=== PATIENT | female | born 1985 | race Asian ===

== ENCOUNTER → 2021-04-04 12:43 | Outpatient (CLI) | payer BC, SELFPAY ==
--- NOTE | ~2021-04-04 | MMUS_ITS ---
EXAMINATION: MM diagnostic lorena BI w darien, US breast BI limited HISTORY: Palpable lump of the right breast at the 9:00 location and history of left breast mass under going surveillance. TECHNIQUE: Craniocaudal, mediolateral, and mediolateral oblique 3-D tomosynthesis images of the breas ts were performed and synthetic 2-D images were generated. CAD analysis was submitted and interpreted . High resolution limited bilateral breast ultrasound was performed. COMPARISON: No prior mammogram is currently available for comparison. BREAST PARENCHYMAL COMPOSITION: The breasts are extremely dense, which lowers the sensitivity of mamm ography. FINDINGS: MAMMOGRAPHIC FINDINGS: There is no evidence of suspicious mass, calcification, or architectural distortion in either breast to suggest malignancy. No mammographic correlate is identified for the reported palpable abnormality of concern in the right breast. ULTRASOUND: Right breast: There is a 4 mm x 3 mm oval, circumscribed, parallel, hypoechoic mass with no posterior features or internal vascularity at the 10:00 location 3 cm from the nipple at the area of palpable concern. A 5 mm x 4 mm mass with similar sonographic features is seen near the nipple at the 8:30 loc ation. There is also a 3 mm round mass with otherwise similar sonographic features at the 6:00 locati on near the nipple. A 4 mm x 3 mm cyst is seen at the 12:00 location near the nipple. Left breast: There is an 8 mm x 5 mm oval, circumscribed, parallel, hypoechoic mass with no posterior features or internal vascularity at the 2:00 location 3 cm from the nipple. A 4 mm x 2 mm mass with similar sonographic features is seen at the 2:00 location 4 cm from the nipple. IMPRESSION: 1. Probably benign, similar-appearing sonographically detected bilateral breast masses. 2. Comparison with prior imaging is recommended. If unavailable, would recommend targeted bilateral b reast ultrasound six months. BI-RADS Category 0: Incomplete: Needs comparison with prior mammograms. Reviewed, dictated and finalized at location A. PAINTER IMPRESSION: 1. Probably benign, similar-appearing sonographically detected bilateral breast masses. 2. Comparison with prior imaging is recommended. If unavailable, would recommen d targeted bilateral breast ultrasound six months. BI-RADS Category 0: Incomplete: Needs comparison with prior mammograms.
--- NOTE | ~2021-04-04 | US_ITS ---
EXAMINATION: US abdomen complete EXAM DATE: 04/04/2021 13:09 INDICATION: Liver lesion seen [address] scan in [place]. TECHNIQUE: Multiple grayscale and Doppler images of the complete abdomen were obtained (by a technolo gist who performed the scan) and subsequently reviewed. There are no prior studies available for galileo puente. FINDINGS: The abdominal aorta is normal in caliber. Visualized portion IVC is patent. The pancreatic head a nd body are normal in appearance. The pancreatic tail is not visualized. The liver has normal echogenicity and contour. There is focal homogeneously hyperechoic right liver dome lesion measuring 1 cm in diameter. Characteristic appearance for a hemangioma, but ultrasound is nonspecific. Patient's age would also favor benign histology. There is no evidence of intrahepatic biliary duct dilation. Portal venous flow was seen in the hepatopedal, normal direction and has norm al Doppler waveform. Common bile duct measures 3 mm, which is normal. The gallbladder wall is normal in thickness, with ex pected amount of distention. No sonographic evidence of pericholecystic fluid. There is no cholelit hiases. Technologist performing exam reports patient did not demonstrate sonographic Sánchez's sign. Please note that this sign is less reliable in patients who have received pain medication. Right kidney: There is normal contour and echogenicity. It measures 9.8 x 3.7 x 5.3 centimeters. T here are no focal renal lesions identified. There is no hydronephrosis. Left kidney: There is normal contour and echogenicity. It measures 10.7 x 5.4 x 5.0 centimeters. T here are no focal renal lesions identified. There is no hydronephrosis. The spleen measures 8.5 centimeters and is morphologically normal. IMPRESSION: Small liver lesion, nonspecific but most likely benign. Reviewed, dictated and finalized at location A. ORIZATION REPRESENTATIVE
== END ==
PROVIDERS: PCP Emergency Medicine; Visit Provider Emergency Medicine
DX: N63.0 Unspecified lump in unspecified breast (principal); R92.8 Other abnormal and inconclusive findings on diagnostic imaging of breast; K76.9 Liver disease, unspecified
CPT/HCPCS: 76642; 76700; 77062; 77066; G0279

== ENCOUNTER → 2021-07-18 09:51 | Outpatient (CLI) | payer BC, SELFPAY ==
--- NOTE | ~2021-07-18 | US_ITS ---
EXAMINATION: US pelvic complete w TV DATE: 07/18/2021 13:20 INDICATION: Abnormal uterine bleeding Comparison:No prior studies for comparison. TECHNIQUE: Multiple transabdominal and endovaginal sonographic images of the pelvis performed. FINDINGS: The uterus measures 8.4 x 4.2 x 5.1 cm. The endometrial complex measures 7 mm. The right ovary measures 2.7 x 1.5 x 2.2 cm and the left ovary measures 2.6 x 1 x 2.4 cm. There are small follicles in each ovary. Normal doppler signal in both ovaries. There is trace free fluid in the pelvis. There are no abnormal masses seen on either side. IMPRESSION: 1. Unremarkable pelvic ultrasound. Reviewed, dictated and finalized at location A.
== END ==
PROVIDERS: PCP Obstetrics & Gynecology; Visit Provider Obstetrics & Gynecology
DX: N93.9 Abnormal uterine and vaginal bleeding, unspecified (principal)
CPT/HCPCS: 76830; 76856

== ENCOUNTER → 2021-07-18 09:52 | Outpatient (CLI) | payer BC, SELFPAY ==
--- NOTE | ~2021-07-18 | US_ITS ---
EXAMINATION: US right upper quadrant DATE: 07/18/2021 10:18 INDICATION: Thrombocytopenia TECHNIQUE: Multiple grayscale and Doppler ultrasound images of the abdomen were obtained. COMPARISON: 04/04/2021 FINDINGS: Bowel gas obscures visualization of the pancreas. The visualized portions of the pancreas a re unremarkable. There is a stable 9 mm hyperechoic lesion of the right hepatic lobe The liver is oth erwise normal with normal echogenicity and echotexture. No surface nodularity. Normal hepatopetal glenn w in the main portal vein. The gallbladder is normal with no abnormal wall thickening, pericholecysti c fluid or stones. The normal common bile duct measures 3 mm. There was no sonographic Sánchez sign. IMPRESSION: 1. No sonographic correlate for the patient's symptoms. 2. Stable hyperechoic liver lesion, likely hemangioma or focal nodular hyperplasia in the absence of known malignancy. Reviewed, dictated and finalized at location A. IMPRESSION: 1. No sonographic correlate for the patient's symptoms. 2. Stable hyperechoic liver lesion, likely hemangioma or focal nodular hyperpla mack in the absence of known malignancy.
== END ==
PROVIDERS: PCP Internal Medicine Hematology & Oncology; Visit Provider Internal Medicine Hematology & Oncology
DX: D69.6 Thrombocytopenia, unspecified (principal)
CPT/HCPCS: 76705

== ENCOUNTER → 2021-10-03 09:05 | Outpatient (CLI) | payer BC, SELFPAY ==
--- NOTE | ~2021-10-03 | US_ITS ---
US breast BI limited DATE: 10/03/2021 10:01 INDICATION: Six-month follow-up of bilateral breast masses TECHNIQUE: High-resolution bilateral targeted breast ultrasound examination for comparison with 2021 bilateral Limited ultrasound examination COMPARISON: 05/12/2019 [facility] bilateral breast ultrasound images 04/04/2021 bilateral diagnostic mammography 04/04/2021 bilateral Limited breast ultrasound FINDINGS: Right breast: There is an irregular anti-parallel 5.3 mm vertical 5 mm wide hypoechoic mass at 10:00 3 cm from nipple, with internal vascularity. There is through transmission. However, the irregular ma rgins and internal vascularity warrant ultrasound-guided biopsy. 12:00 subareolar: 4 x 4.6 mm circumscribed sonolucency with through transmission, posterior enhanceme nt, consistent with simple cyst 6:00 subareolar: 2.5 x 3.1 mm sonolucency with through transmission, consistent with small cyst 8:00 subareolar: 2.6 x 3.5 mm circumscribed sonolucency, consistent with small cyst Left breast: Circumscribed parallel hypoechoic approximately 4.5 x 7.7 mm lesion without internal vas cularity or posterior shadowing, not significantly changed since 05/12/2019, consistent with benign les ion. IMPRESSION: BI-RADS Category 4: Suspicious abnormality; biopsy should be considered for right breast 10:00 anti-parallel irregular 5 x 5.3 mm lesion [address] Samano telephoned the report and ultrasound-guided biopsy recommendation for the right breast 10:00 lesion on 10/03/20[address] Gamez Reviewed, dictated and finalized at Location A. Reviewed, dictated and finalized at location A. IMPRESSION: BI-RADS Category 4: Suspicious abnormality; biopsy should be consid ered for right breast 10:00 anti-parallel irregular 5 x 5.3 mm lesion [address] Samano telephoned the report and ultrasound-guided biopsy recommendation for the right breast 10:00 lesion on 10/03/2021 [address] Gamez
== END ==
PROVIDERS: PCP Emergency Medicine; Visit Provider Emergency Medicine
DX: R92.2 Inconclusive mammogram (principal); R92.8 Other abnormal and inconclusive findings on diagnostic imaging of breast
CPT/HCPCS: 76642

== ENCOUNTER 2021-11-07 11:17 | Outpatient (CLI) | payer BC, SELFPAY ==
--- NOTE | ~2021-11-07 | MMUS_ITS ---
EXAMINATION: US breast biopsy RT w image, MM post biopsy invasive RT DATE: 11/07/2021 13:51 (accession [id number]), 11/07/2021 13:54 (accession [id number]) INDICATION: Indeterminate mass in the upper outer quadrant of the right breast. Ultrasound-guided cor e biopsy is requested to evaluate for malignancy. TECHNIQUE AND FINDINGS: The risks and potential benefits of the procedure were discussed with the patient including bleeding and infection. A time out was performed. The skin of the right breast was prepared and draped in usua l sterile fashion. 1% lidocaine was used for superficial anesthesia. 1% lidocaine with epinephrine wa s used for deep anesthesia. A vacuum-assisted biopsy gun needle was advanced through to the outer edge of the region of interest from a lateral approach utilizing sonographic guidance. A total of three tissue core samples were obt ained through the lesion. A tissue marker clip was then placed at the biopsy site. Hemostasis was ach ieved. A sterile bandage was applied. The patient tolerated procedure well and there was no evidence of immediate complication. The patient was given verbal instructions to return to the Emergency Department in the event of severe breast pa in or rapid breast enlargement. A two view right breast mammogram was obtained to document tissue mar ker clip placement. IMPRESSION: 1. Successful ultrasound-guided vacuum-assisted biopsy of right breast mass with tissue marker placem ent. Reviewed, dictated and finalized at location A. IMPRESSION: 1. Successful ultrasound-guided vacuum-assisted biopsy of right breast mass wit h tissue marker placement.
== END 2021-11-07 11:18 | disposition home or self-care (01) ==
PROVIDERS: PCP Emergency Medicine; Visit Provider Emergency Medicine
DX: N63.11 Unspecified lump in the right breast, upper outer quadrant (principal)
CPT/HCPCS: 19083; 88305; A4648

== ENCOUNTER → 2022-05-22 10:07 | Outpatient (CLI) | payer BC, SELFPAY ==
--- NOTE | ~2022-05-22 | MMUS_ITS ---
EXAMINATION: MM diagnostic lorena BI w darien, US breast BI complete HISTORY: No histopathology on 11/07/2021 right ultrasound-guided breast biopsy. Bilateral breast scree melissa. TECHNIQUE: ML, MLO and CC 3-D tomosynthesis images of both breasts were performed and synthetic 2-D i mages were generated. CAD analysis was submitted and interpreted. High resolution bilateral complete breast ultrasound examination including all 4 quadrants and subareolar areas was performed. COMPARISON: 11/07/2021 right ultrasound-guided breast biopsy 10/03/2021 bilateral Limited breast ultrasound 02/02/2022. Bilateral diagnostic mammography and bilateral Limited breast ultrasound BREAST PARENCHYMAL COMPOSITION: The breasts are extremely dense, which lowers the sensitivity of mamm ography. FINDINGS: MAMMOGRAPHIC FINDINGS: There is a biopsy marker in the upper outer right breast. There are possible bilateral breast masses] . The examination is extremely limited by the very dense stroma. Bilateral complete breast ultrasound examination was therefore performed. No malignant calcification, architectural distortion, skin thickening or retraction is evident. ULTRASOUND: Right breast: 4:00 3 cm from nipple: Parallel circumscribed 2.2 x 4.5 x 4.3 mm lesion without internal vascularity or posterior shadowing. The margins are mildly irregular. 9:00 3 cm from nipple: Irregular hypoechoic lesion measuring 5.3 x 5.4 x 5.6 mm, with through transmi ssion and posterior enhancement. There is mild internal vascularity. Because of the irregular margins and internal vascularity, sign guided biopsy is recommended. 10:00 5 cm from nipple: 2.4 x 4.9 x 5.2 mm irregular hypoechoic lesion with adjacent color flow signa l. Ultrasound-guided biopsy is recommended due to the irregular margins. Left breast: 1:00 subareolar area: 4.3 x 6.6 x 7.3 mm parallel circumscribed hypoechoic lesion without internal va scularity or posterior shadowing 3:00 3 cm from nipple: 2.8 x 3.4 x 5.2 mm parallel hypoechoic solid lesion without internal vasculari ty or posterior shadowing 8:00 3 cm from nipple: Irregular hypoechoic 6.1 x 3.8 x 7.4 mm mass with internal vascularity, with a n apparent prominent tentacle-like extension. This lesion is suspicious. Ultrasound-guided biopsy is recommended. 10:00 6 cm from nipple: 2.7 x 1.9 x 3.5 mm irregular hypoechoic lesion without internal vascularity o r posterior shadowing IMPRESSION: 1. Multiple bilateral breast masses 2. Ultrasound-guided biopsy of bilateral breast masses is recommended, including at a minimum the rig ht breast 9:00 and 10:00 lesions and left breast 8:00 lesion BI-RADS Category 4: Suspicious abnormalities; biopsy should be considered Dr. Samano telephoned the reports and ultrasound guided biopsy recommendation of both breasts on 023 at 1302 hours to [facility]. Reviewed, dictated and finalized at location A. IMPRESSION: 1. Multiple bilateral breast masses 2. Ultrasound-guided biopsy of bilateral breast masses is recommended, includin g at a minimum the right breast 9:00 and 10:00 lesions and left breast 8:00 les ion BI-RADS Category 4: Suspicious abnormalities; biopsy should be considered Dr. Samano telephoned the reports and ultrasound guided biopsy recommendation of both breasts on 05/22/2022 at 1302 hours to [facility].
== END ==
PROVIDERS: PCP Emergency Medicine; Visit Provider Emergency Medicine
DX: N63.10 Unspecified lump in the right breast, unspecified quadrant (principal); R92.8 Other abnormal and inconclusive findings on diagnostic imaging of breast
CPT/HCPCS: 76641; 77062; 77066; G0279

== ENCOUNTER 2022-06-19 09:23 | Outpatient (CLI) | payer BC, SELFPAY ==
--- NOTE | ~2022-06-19 | MMUS_ITS ---
EXAMINATION: US GUIDED NEEDLE BIOPSY DATE: 06/19/2022 11:03 CDT INDICATION: Right 9 and 10:00 and left 8:00 sonographic breast masses TECHNIQUE AND FINDINGS: The risks and potential benefits of the procedure were discussed with the patient, and written inform ed consent was obtained. Timeout procedure was performed. After sterile preparation of the left breast, 1% lidocaine was utilized for local anesthesia. A 14G spring-loaded biopsy gun needle was advanced to the edge of the left breast region of interest at 8:00 from a superior approach utilizing sonographic guidance. A total of three tissue core sample s were obtained through the lesion. An Inrad tissue marker clip was then placed at the biopsy site. Hemostasis was achieved. A sterile bandage was applied. After sterile preparation of the right breast, 1% lidocaine was utilized for local anesthesia. A 14-gauge spring-loaded biopsy gun needle was advanced to the edge of the right breast region of int erest at 10:00 from an inferior approach utilizing sonographic guidance. A total of 3 tissue core dariana ples were obtained through the lesion. A tissue marker clip was placed at the biopsy site. Hemostasis was achieved. From the same skin incision, a 14-gauge spring-loaded biopsy gun needle was advanced to the edge of t he right breast 9:00 lesion from an inferior approach utilizing sonographic guidance. A total of 3 ti ssue core samples were obtained through the lesion. A tissue marker clip was placed at the biopsy sit e. Hemostasis was achieved. The patient tolerated procedure well and there was no evidence of immediate complication. The patien t was given verbal instructions prior to departing from the department. A two view mammogram was perf ormed to document tissue marker clip placement. The tissue samples were submitted to surgical patholo gy for histologic analysis. IMPRESSION: 1. Successful ultrasound guided biopsy of right 8:00 and left 9:00 and 10:00 breast masses with biop sy marker placement at each of the 3 biopsy sites. Please refer to pathology report for histologic an alysis. Reviewed, dictated and finalized at Location A. Reviewed, dictated and finalized at location A. IMPRESSION: 1. Successful ultrasound guided biopsy of right 8:00 and left 9:00 and 10:00 b reast masses with biopsy marker placement at each of the 3 biopsy sites. Please refer to pathology report for histologic analysis. IMPRESSION: 1. Successful ultrasound guided biopsy of right 8:00 and left 9:00 and 10:00 b reast masses with biopsy marker placement at each of the 3 biopsy sites. Please refer to pathology report for histologic analysis. IMPRESSION: 1. Successful ultrasound guided biopsy of right 8:00 and left 9:00 and 10:00 b reast masses with biopsy marker placement at each of the 3 biopsy sites. Please refer to pathology report for histologic analysis.
== END 2022-06-19 09:24 | disposition home or self-care (01) ==
PROVIDERS: PCP Emergency Medicine; Visit Provider Emergency Medicine
DX: N63.20 Unspecified lump in the left breast, unspecified quadrant (principal); N63.10 Unspecified lump in the right breast, unspecified quadrant
CPT/HCPCS: 19083; 19084; 88305; 88342; A4648

== ENCOUNTER 2022-10-16 01:58 | Day surgery (SDC) | payer BC, SELFPAY ==
[2022-10-09 11:35] VITALS: BMI 19.1
[2022-10-16] VITALS (7 sets, daily range): BP systolic 97–124; BP diastolic 65–94; PULSE 75–101; RESP 18–22; TEMP 36.1; O2SAT 98–100; BMI 18.3
--- NOTE | 2022-10-16 09:19 | SUR.PREOP ---
Patient speaks Japanese and Mandarin. Able to speak clearly and understands most Japanese. Patient declined [employer] photography assistant for consent and preop.
[2022-10-16] MEDS: LACTATED RINGERS 1,000 ML 150 ML IV CONT (09:26)
--- NOTE | 2022-10-16 09:34 | P.PNAN_ITS ---
Anes - Initial Pre Proc Eval Procedure: Operation Date: 10/16/22 10:30 Proposed Procedures p Esophagogastroduodenoscopy & Colonoscopy - Chon Dunne MD Date/Time: 10/16/22 09:34 Surgeon: Chon Dunne MD Pre Op Diagnosis: diarrhea,hx Hpylori, GERD Patient Data Age: 37 Gender: F Height: 1.57 m Weight: 45.5 kg Last Vital Signs Temp 97.0 F L 10/16/22 09:16 Pulse 95 10/16/22 09:16 Resp 18 10/16/22 09:16 BP 123/78 10/16/22 09:16 Pulse Ox 100 10/16/22 09:16 O2 Del Method Room Air 10/16/22 09:16 Allergies Allergy/AdvReac Type Severity Reaction Status Date / Time No Known Allergies Allergy Verified 10/16/22 09:15 Home Medications Medication Instructions Recorded Confirmed Type zolpidem 5 mg tablet 5 mg PO DAILY 10/09/22 10/16/22 History Patient hx anesthesia problems: none Family hx anesthesia problems: none Results Review: All pre-operative results and documents have been reviewed as part of the pre- operative evaluation. [facility] Past Medical History Medical History (Updated 10/02/22 @ 11:32 by Rufina Szymanski MD) Abnormal uterine bleeding Masses of both breasts Thrombocytopenia Surgical History Surgical History Delivery by section H/O breast biopsy 06/19/2022 - right and left breast - benign findings Social History Social History (Updated 10/02/22 @ 10:36 by Radha Sebastian CMA) Smoking status: Never smoker Alcohol intake: never Substance use: never Substance use type: does not use Lack of Transportation: No Lack of Food: Never True Concerned About Future Housing: No Difficulty Paying Gas/Electric Bills: No Difficulty Paying for Meds: No Currently Unemployed: No Education: High School Diploma/GED Difficulty w/ Childcare or Family Care: No Living arrangements: with family Occupation/Education: occupation 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 Gender identity (if verbalized by the patient): Female Sexual Orientation (if Verbalized by the Patient): Straight or Heterosexual Spiritual care concerns: No Anes - Eval Final PreProcedure Day of Procedure 10/16/22 09:34 Patient weight: normal Heart: regular rate and rhythm Lungs: clear to auscultation Airway: Mallampati scale class II Neurological: alert and oriented Last oral intake: >/= 8 hours ASA classification: II Emergent: no Anesthetic plan: proceed Anesthesia type and monitoring: general GIVS and standard monitoring Results Review: All pre-operative results and documents have been reviewed as part of the pre- operative evaluation. Informed Consent: The patient's anesthetic plan and its attendant risks and benefits were discussed with the patient/family/POA. Questions were solicited and answers provided to the satisfaction of the patient/family/POA.
--- NOTE | 2022-10-16 09:53 | PM.HPGS ---
History of Present Illness History of Present Illness Consent: Risks, benefits, and alternatives have been discussed and questions answered. Patient agrees to proceed with procedure. Chief complaint: diarrhea,hx Hpylori, GERD Narrative: Francisco Miner is a 37 year old female with dyspepsia, previous history of h pylori, also loose stools probably ibs-d Review of Systems Constitutional: Constitutional: Denies headache(s) and Denies weakness Eyes: Eyes: Denies blurry vision ENT: Reports Normal hearing present, Denies headache(s) and Denies neck pain Cardiovascular: Cardiovascular: Denies chest pain and Denies dyspnea Respiratory: Respiratory: Denies dyspnea Gastrointestinal: Gastrointestinal: Reports no additional gastrointestinal complaints Genitourinary: Genitourinary: Denies dysuria Musculoskeletal: Musculoskeletal: Denies neck pain Integumentary/Breasts: Skin/Breast: Denies dry skin Neurologic: Reports Normal hearing present, Denies headache(s) and Denies weakness Psychiatric: Psychiatric: Denies anxiety Endocrine: Endocrine: Denies change in body appearance Hematologic/Lymphatic: Hematologic/Lymphatic: Denies easy bleeding Allergic/Immunologic: Allergic/Immunologic: Denies urticaria PMFSH Past Medical History Medical History (Updated 10/16/22 @ 09:54 by Chon Dunne MD) Abnormal uterine bleeding Dyspepsia Loose stools Masses of both breasts Thrombocytopenia Surgical History Surgical History Delivery by section H/O breast biopsy 06/19/2022 - right and left breast - benign findings Social History Social History (Updated 10/02/22 @ 10:36 by Radha Sebastian CMA) Smoking status: Never smoker Alcohol intake: never Substance use: never Substance use type: does not use Lack of Transportation: No Lack of Food: Never True Concerned About Future Housing: No Difficulty Paying Gas/Electric Bills: No Difficulty Paying for Meds: No Currently Unemployed: No Education: High School Diploma/GED Difficulty w/ Childcare or Family Care: No Living arrangements: with family Occupation/Education: occupation 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 Gender identity (if verbalized by the patient): Female Sexual Orientation (if Verbalized by the Patient): Straight or Heterosexual Spiritual care concerns: No Meds Home Medications and Allergies Home Medications Medication Instructions Recorded Confirmed Type zolpidem 5 mg tablet 5 mg PO DAILY 10/09/22 10/16/22 History Allergies Allergy/AdvReac Type Severity Reaction Status Date / Time No Known Allergies Allergy Verified 10/16/22 09:15 Vital Signs Vital Signs - 24 hr 10/16/22 09:16 Temperature 97.0 F L Pulse Rate 95 Respiratory Rate 18 Blood Pressure 123/78 Pulse Oximetry 100 Oxygen Delivery Room Air Exam Const: General: comfortable and no acute distress HENMT: Face/Nose/Sinus: Normal nares present Eyes: General: appearance normal, both eyes and all related structures Neck: Neck: no JVD Resp: Auscultation: clear to auscultation bilaterally Cardio: Rate: regular rate Rhythm: regular rhythm GI: Inspection: non-distended GI Palp: Yes Soft to palpation Skin: General skin exam: normal color Neuro: General: gait normal Speech: normal speech Extrem: General: normal to inspection Psych: Mental Status: mental status grossly normal Assessment and Plan Assessment and plan (1) Loose stools: Code(s): R19.5 - Other fecal abnormalities Status: Acute Assessment and Plan: colonoscopy (2) Dyspepsia: Code(s): R10.13 - Epigastric pain Status: Acute Assessment and Plan: egd with bx
--- NOTE | 2022-10-16 10:11 | SUR.OPER ---
EGD: [id number] COLON: [id number]
== END 2022-10-16 11:32 | disposition home or self-care (01) ==
PROVIDERS: PCP Emergency Medicine; Visit Provider Internal Medicine Gastroenterology
PROC: 0DJ08ZZ Inspection of Upper Intestinal Tract, Via Natural or Artificial Opening Endoscopic (ICD-10-PCS; CPT 43235; principal; 2022-10-16 10:30)
DX: K58.0 Irritable bowel syndrome with diarrhea (principal); K30 Functional dyspepsia; R11.0 Nausea; Z87.19 Personal history of other diseases of the digestive system
CPT/HCPCS: 45380; 43239; 87081; 88305; J2704; J7120

== ENCOUNTER 2022-11-27 11:47 | Outpatient (CLI) | payer BC, SELFPAY ==
--- NOTE | ~2022-11-27 | MMUS_ITS ---
EXAMINATION: MM diagnostic lorena RT w darien, US breast RT limited HISTORY: Benign neoplasm of the right breast TECHNIQUE: Additional 3-D tomosynthesis images of the right breast were performed and synthetic 2-D i mages were generated. CAD analysis was submitted and interpreted. High resolution Limited right breas t ultrasound was performed. COMPARISON: Comparison to multiple prior studies sequentially, with oldest reviewed study dated 04/04. BREAST PARENCHYMAL COMPOSITION: The breasts are extremely dense, which lowers the sensitivity of mamm ography FINDINGS: MAMMOGRAPHIC FINDINGS: The right breast is stable. No new masses, calcifications or architectural distortion to suggest marquis gnancy. There are 2 tissue markers in the upper outer quadrant of the right breast. ULTRASOUND: Limited right breast ultrasound at 10:00, 7 cm from the nipple there is an oval hypoechoic mass with parallel orientation, no posterior features and no internal vascularity measuring 5 mm, unchanged fro m prior examination. Given the lack of interval change in the sonographic appearance this is consider ed benign. The lesion seen on 9:00, 3 cm from the nipple on prior examination is not present on the c urrent study. IMPRESSION: 1. . No evidence for malignancy in the right breast. Benign findings. 2. Routine yearly screening mammogram and regular clinical breast examination are recommended. BI-RADS Category 2: Benign finding(s). Reviewed, dictated and finalized at location A. IMPRESSION: 1. . No evidence for malignancy in the right breast. Benign findings. 2. Routine yearly screening mammogram and regular clinical breast examination a re recommended. BI-RADS Category 2: Benign finding(s).
== END 2022-11-27 11:48 | disposition home or self-care (01) ==
LOC: ANHIMG 11:49
PROVIDERS: PCP Emergency Medicine; Visit Provider Physician Assistant Surgical
DX: R92.8 Other abnormal and inconclusive findings on diagnostic imaging of breast (principal)
CPT/HCPCS: 76642; 77061; 77065; G0279